=== PATIENT | male | born 1955 | race African-American/Black ===

== ENCOUNTER 2018-08-29 12:41 | Inpatient (IN) | payer MEDICARE, BC ==
[~2018-08-29] VITALS: Ht 180.3 cm; Wt 77.1 kg
[2018-08-29 12:41] VITALS: BP 97/65
[~2018-08-29 12:41] MED LIST: AMBIEN5 MG ORAL; ASPIRIN EC81 MG ORAL; BIDIL TABLET1 EACH; CARVEDILOL3.125 MG ORAL; CARVEDILOL6.25 MG ORAL; COUMADIN2.5 MG ORAL; COUMADIN5 MG ORAL; CYANOCOBAL1000 MCG/2 IM; FLOMAX0.4 MG ORAL; FOLIC ACID1 MG ORAL; FUROSEMIDE40 MG ORAL; GABAPENTIN300 MG ORAL; KLOR-CON20 MEQ ORAL; LEXAPRO10 MG ORAL; LISINOPRIL20 MG ORAL; METFORMIN HCL1000 M1 ORAL; NAPROXEN25 G1 MC; NEURONTIN600 MG ORAL; NORCO 10/3251 EA ORAL; PAREGORIC2 MG/5 ML PO; PLAVIX75 MG ORAL; RANITIDINE50 MG/2 ML IV; SPIRONOLACTONE100 MG ORAL; SUPER B COMPLE150 MG PO; ZOFRAN4 M1 ORAL
[2018-08-29] MEDS ORDERED: Sodium Chloride 500ML 500 ML IV ONE ×2 (12:55→15:15)
[2018-08-29 13:44] LABS: APPEARANCE,URINE CLEAR; BASOPHILS % (AUTO) 2.1 % (0.0-2.0); BILIRUBIN, URINE NEGATIVE (NEGATIVE); COLOR,URINE PALE YELLOW; EOSINOPHILS % (AUTO) 0.8 % (0.0-3.0); GLUCOSE, URINE (UA) NEGATIVE (NEGATIVE); HEMATOCRIT 36.6 % (42.0-52.0); HEMOGLOBIN 12.8 G/DL (14.2-18.0); KETONES,URINE NEGATIVE (NEGATIVE); LEUKOCYTE ESTERASE ,URINE NEGATIVE (NEGATIVE); LYMPHOCYTES % (AUTO) 26.9 % (20.0-45.0); MEAN CORPUSCULAR VOLUME 91 FL (80-99); MONOCYTES % (AUTO) 8.2 % (1.0-10.0); NITRITE,URINE NEGATIVE (NEGATIVE); PH,URINE 5 (4.5-8.0); PLATELET COUNT 137 K/UL (150-450); PROTEIN,URINE NEGATIVE (NEGATIVE); RED BLOOD COUNT 4.02 M/UL (4.70-6.10); RED CELL DISTRIBUTION WIDTH 11.7 % (11.6-14.8); UROBILINOGEN,URINE NORMAL MG/DL (0.0-1.0)
[2018-08-29 13:52] LABS: ANION GAP 11 mmol/L (5-15); BLOOD UREA NITROGEN 61 mg/dL (7-18); CALCIUM 8.7 MG/DL (8.5-10.1); CARBON DIOXIDE 21 MMOL/L (21-32); CHLORIDE 103 MMOL/L (98-107); CREATININE 2.2 MG/DL (0.55-1.30); POTASSIUM 4.8 MMOL/L (3.5-5.1); SODIUM 135 MMOL/L (136-145)
[2018-08-29 13:58] LABS: INR 1.2 (0.9-1.1)
[2018-08-29 14:05] LABS: ALANINE AMINOTRANSFERASE 75 U/L (12-78); ALBUMIN 3.4 G/DL (3.4-5.0); ALBUMIN/GLOBULIN RATIO 0.9 (1.0-2.7); ALKALINE PHOSPHATASE 99 U/L (46-116); ASPARTATE AMINO TRANSFERASE 58 U/L (15-37); BILIRUBIN,TOTAL 0.5 MG/DL (0.2-1.0); CKMB 0.9 NG/ML (0.0-3.6); CREATINE KINASE 46 U/L (26-308)
--- NOTE | 2018-08-29 14:13 | Diagnostic Imaging Report ---
Indication: Shortness of breath Technique: One view of the chest Comparison: 03/22/2015 Findings: Linear band of scarring is seen in the left lung base. The lungs and pleural spaces are otherwise clear. There is a left chest biventricular AICD. The heart size is upper limits normal. There is evidence of prior CABG Impression: No acute process. Postsurgical changes as described
--- NOTE | 2018-08-29 14:18 | Emergency Room Report ---
History of Present Illness General Chief Complaint: Chest Pain Source: Patient Present Illness HPI Patient is a 63-year-old male brought in by EMS after increased chest discomfort. Patient reports having increased the associated chest pressure the patient was sent in from [facility] the patient was noted to have prior history of cardiac disease. The patient had prior pacemaker placement as well as CABG approximately 8 years ago the patient was noted to have prior history of CHF. Patient reports having increased generalized weakness.The patient denies any defibrillator shocking.The patient was given aspirin by EMS Allergies: Coded Allergies: NO KNOWN ALLERGIES (Verified Allergy, Unknown, 08/29/18) Patient History Past Medical History: see triage record Past Surgical History: CABG, PTCA Reviewed Nursing Documentation: PMH: Agreed; PSxH: Agreed Nursing Documentation-PMH Hx Cardiac Problems: Yes Hx Hypertension: Yes Hx Pacemaker: Yes - V-PACING Hx Asthma: No - ALCOHOL DEPENDANCY Hx Diabetes: Yes Hx Cancer: No Hx Gastrointestinal Problems: Yes Hx Neurological Problems: No Hx Cerebrovascular Accident: No Hx Weakness: Yes - STARTING TODAY BI-LATERAL LOWER EXT WEAKNESS Review of Systems All Other Systems: negative except mentioned in HPI Physical Exam Vital Signs Date Time Temp Pulse Resp B/P (MAP) Pulse Ox O2 Delivery O2 Flow Rate FiO2 08/29/18 12:37 97.9 64 16 109/52 96 Room Air Sp02 EP Interpretation: reviewed, normal General Appearance: normal inspection, alert, GCS 15, non-toxic, Chronically Ill Head: atraumatic ENT: normal ENT inspection, hearing grossly normal, normal voice Neck: normal inspection, full range of motion, supple, no bony tend Respiratory: normal inspection, lungs clear, normal breath sounds, no respiratory distress, no retraction, no wheezing Cardiovascular #1: regular rate, rhythm, no edema Gastrointestinal: non tender, tenderness - lower abdomen, other - prior ostomy Genitourinary: no CVA tenderness Musculoskeletal: normal inspection, back normal, normal range of motion Neurologic: normal inspection, alert, oriented x3, responsive, immigration case worker III-XII nml as tested, speech normal Psychiatric: normal inspection, judgement/insight normal, mood/affect normal Skin: normal inspection, normal color, no rash Medical Decision Making Diagnostic Impression: Primary Impression: Episode of generalized weakness Additional Impressions: Cardiomyopathy DM (diabetes mellitus) possible short gut syndrome Acute renal failure ER Course Patient presented for chest pain and generalized weakness. The differential diagnosis included was not limited to pneumonia, myocardial infarction, arrhythmia among others. The EKG interpreted by me showed paced rhythm with a rate of [address] or T wave changes. Chest x-ray one view read by radiology showed postsurgical changes without evident infiltrate or pneumothorax. The laboratory testing showed no evidence of hyperkalemia. The patient was noted to be initially hypotensive. Patient was given IV fluids Dr. Greenberg was contacted for inpatient management due to complexity of medical condition and covering physician for Dr. Richard. Labs Test 08/29/18 13:00 White Blood Count 6.0 K/UL (4.8-10.8) Red Blood Count 4.02 M/UL (4.70-6.10) Hemoglobin 12.8 G/DL (14.2-18.0) Hematocrit 36.6 % (42.0-52.0) Mean Corpuscular Volume 91 FL (80-99) Mean Corpuscular Hemoglobin 32.0 PG (27.0-31.0) Mean Corpuscular Hemoglobin Concent 35.1 G/DL (32.0-36.0) Red Cell Distribution Width 11.7 % (11.6-14.8) Platelet Count 137 K/UL (150-450) Mean Platelet Volume 10.3 FL (6.5-10.1) Neutrophils (%) (Auto) 62.0 % (45.0-75.0) Lymphocytes (%) (Auto) 26.9 % (20.0-45.0) Monocytes (%) (Auto) 8.2 % (1.0-10.0) Eosinophils (%) (Auto) 0.8 % (0.0-3.0) Basophils (%) (Auto) 2.1 % (0.0-2.0) Prothrombin Time 12.8 SEC (9.30-11.50) Prothromb Time International Ratio 1.2 (0.9-1.1) Activated Partial Thromboplast Time 36 SEC (23-33) Urine Color Pale yellow Urine Appearance Clear Urine pH 5 (4.5-8.0) Urine Specific [place] 1.015 (1.005-1.035) Urine Protein Negative (NEGATIVE) Urine Glucose (UA) Negative (NEGATIVE) Urine Ketones Negative (NEGATIVE) Urine Blood Negative (NEGATIVE) Urine Nitrite Negative (NEGATIVE) Urine Bilirubin Negative (NEGATIVE) Urine Urobilinogen Normal MG/DL (0.0-1.0) Urine Leukocyte Esterase Negative (NEGATIVE) Sodium Level 135 MMOL/L (136-145) Potassium Level 4.8 MMOL/L (3.5-5.1) Chloride Level 103 MMOL/L (98-107) Carbon Dioxide Level 21 MMOL/L (21-32) Anion Gap 11 mmol/L (5-15) Blood Urea Nitrogen 61 mg/dL (7-18) Creatinine 2.2 MG/DL (0.55-1.30) Estimat Glomerular Filtration Rate 36.7 mL/min (>60) Glucose Level 119 MG/DL (74-106) Calcium Level 8.7 MG/DL (8.5-10.1) Total Bilirubin 0.5 MG/DL (0.2-1.0) Aspartate Amino Transf (AST/SGOT) 58 U/L (15-37) Alanine Aminotransferase (ALT/SGPT) 75 U/L (12-78) Alkaline Phosphatase 99 U/L (46-116) Total Creatine Kinase 46 U/L (26-308) Creatine Kinase MB 0.9 NG/ML (0.0-3.6) Creatine Kinase MB Relative Index 1.9 Troponin I 0.004 ng/mL (0.000-0.056) Pro-B-Type Natriuretic Peptide 919 pg/mL (0-125) Total Protein 7.2 G/DL (6.4-8.2) Albumin 3.4 G/DL (3.4-5.0) Globulin 3.8 g/dL Albumin/Globulin Ratio 0.9 (1.0-2.7) Lipase 49 U/L (73-393) EKG Diagnostic Results Rate: normal Rhythm: other - paced rhythm ST Segments: no acute changes Last Vital Signs Date Time Temp Pulse Resp B/P (MAP) Pulse Ox O2 Delivery O2 Flow Rate FiO2 08/29/18 12:37 97.9 64 16 109/52 96 Room Air Status: unchanged Disposition: ADMITTED INPATIENT Condition: Serious Aaron Weinstein MD Aug 29, 2018 14:18
[2018-08-29 14:38] VITALS: BP 105/71
[2018-08-29] MEDS ORDERED: HYDROcodone/Acetamin 10/325 tab ORAL ONE (15:15)
[2018-08-29] MEDS ORDERED: FINASTERIDE5 MG ORAL (16:25)
[2018-08-29] MEDS ORDERED: SPIRONOLACTONE100 MG ORAL (16:25)
[2018-08-29] MEDS ORDERED: RANITIDINE HCL150 M2 PO (16:25)
[2018-08-29] MEDS ORDERED: FUROSEMIDE40 MG/5 ML ORAL (16:25)
[2018-08-29] MEDS ORDERED: JANUVIA100 MG ORAL (16:25)
[2018-08-29] MEDS ORDERED: TAMSULOSIN HCL0.4 MG ORAL (16:25)
[2018-08-29] MEDS ORDERED: ISOSORBIDE DINI20 M2 PO (16:25)
[2018-08-29] MEDS ORDERED: ALDACTONE25 MG ORAL (16:25)
[2018-08-29] MEDS ORDERED: ELIQUIS5 MG PO (16:25)
[2018-08-29] MEDS ORDERED: JANUMET 50-5001 EACH ORAL (16:25)
[2018-08-29] MEDS ORDERED: ATORVASTATIN CA40 MG ORAL (16:25)
[2018-08-29] MEDS ORDERED: ENTRESTO 24 MG1 EACH PO (16:25)
[2018-08-29 16:40] VITALS: BP 113/75
[2018-08-29] MEDS ORDERED: Zolpidem 5mg tab ORAL PRN (17:30)
[2018-08-29] MEDS ORDERED: Mylanta II UD 30ml ORAL PRN (17:30)
[2018-08-29] MEDS ORDERED: Miralax 17gm pkt ORAL PRN (17:30)
[2018-08-29] MEDS ORDERED: LORazepam Inj 2mg/ml 1ml IV PRN (17:30)
[2018-08-29 18:40] VITALS: BP 105/58
[2018-08-29 20:00] VITALS: BP 114/77
[2018-08-29] MEDS: Carvedilol 12.5mg tab ORAL SCH (20:56)
[2018-08-29] MEDS: Heparin 5000 units/ml inj SUBQ SCH (20:57)
[2018-08-29] MEDS: NovoLOG Insulin Flexpen SUBQ SCH (20:57)
[2018-08-29] MEDS ORDERED: PPD Tuberculin Skin Test 5TU IDERMAL ONE (21:00)
[2018-08-29] MEDS: Morphine Sulfate 2mg/ml Inj IVP PRN (22:06)
[2018-08-30] VITALS: BP 117/75
[2018-08-30 04:00] VITALS: BP 102/61
[2018-08-30] MEDS: NovoLOG Insulin Flexpen SUBQ SCH ×4 (06:30→21:00)
[2018-08-30 07:49] LABS: EOSINOPHILS % (AUTO) 1.3 % (0.0-3.0); HEMATOCRIT 35.3 % (42.0-52.0); HEMOGLOBIN 12.7 G/DL (14.2-18.0); LYMPHOCYTES % (AUTO) 29.1 % (20.0-45.0); MEAN CORPUSCULAR VOLUME 91 FL (80-99); NEUTROPHILS % (AUTO) 54.6 % (45.0-75.0); PLATELET COUNT 109 K/UL (150-450); RED BLOOD COUNT 3.89 M/UL (4.70-6.10); RED CELL DISTRIBUTION WIDTH 11.7 % (11.6-14.8); WHITE BLOOD COUNT 6.9 K/UL (4.8-10.8)
--- NOTE | 2018-08-30 07:52 | Consultation ---
History of Present Illness General Date patient seen: Aug 30, 2018 Chief Complaint: Chest Pain Reason for Consultation: PNA Present Illness HPI Mr. Kong is a 63 yo male with PMHx of CHF and CABG who presented to the ED with CP. The patient was sent from his half-way on 08/29/18. The patient has no Hx of SOB, F/C, cough, hemoptysis. The CXR from the ER shows no acute process only postsurgical changes as described. He reports no F/C, N/V/D, Mild cough but nothing bad. His CP is resolved. ID was consulted for PNA PMHx/PXHx DM CAD CABG PTCA Depression HTN EtOH abuse AICD short-bowel syndrome Colectomy SocHx Active smoker Past EtOH use FamHx ALLERGIES: DONOVAN inhibitors. Allergies: Coded Allergies: NO KNOWN ALLERGIES (Verified Allergy, Unknown, 08/29/18) Medication History Scheduled Apixaban (Eliquis), 5 MG PO DAILY, (Reported) Aspirin Ec* (Aspirin Ec*), 81 MG ORAL DAILY, (Reported) Atorvastatin Calcium* (Atorvastatin Calcium*), 80 MG ORAL BEDTIME, (Reported) Carvedilol* (Carvedilol*), 12.5 MG ORAL BID, (Reported) Clopidogrel Bisulfate* (Plavix*), 75 MG ORAL DAILY, (Reported) Cyanocobalamin (Vitamin B-12) (Cyanocobalamin Injection), 1,000 MCG IM EVERY OTHER WED, (Reported) Escitalopram Oxalate* (Lexapro*), 10 MG ORAL DAILY, (Reported) Finasteride (Finasteride), 5 MG ORAL DAILY, (Reported) Folic Acid* (Folic Acid*), 1 MG ORAL DAILY, (Reported) Furosemide (Furosemide), 20 MG ORAL DAILY, (Reported) Gabapentin* (Neurontin*), 300 MG ORAL THREE TIMES A DAY Isosorbide Dinitrate (Isosorbide Dinitrate), 20 MG PO TID, (Reported) Ranitidine HCl (Ranitidine HCl), 150 MG PO BID, (Reported) Ranitidine Hcl* (Ranitidine Hcl*), 150 MG IV Q12HR, (Reported) Sacubitril/Valsartan (Entresto 24 mg-26 mg Tablet), 1 EACH PO DAILY, (Reported) Sitagliptin (Januvia), 100 MG ORAL DAILY, (Reported) Sitagliptin Phos/Metformin Hcl (Janumet 50-500 Mg Tablet), 1 TAB ORAL DAILY, ( Reported) Spironolactone (Aldactone), 25 MG ORAL DAILY, (Reported) Spironolactone* (Spironolactone*), 12.5 MG ORAL DAILY, (Reported) Tamsulosin HCl (Flomax), 0.4 MG ORAL BID Tamsulosin Hcl (Tamsulosin Hcl*), 0.4 MG ORAL BEDTIME, (Reported) Vitamin B Complex & Vit C No.4 (Super B Complex), 400 MG PO DAILY, (Reported) Warfarin Sod* (Coumadin*), 5 MG ORAL DAILY ON TO SAT, (Reported) Warfarin Sod* (Coumadin*), 2.5 MG ORAL DAILY SAT AND SUN , (Reported) Scheduled PRN Hydrocodone/Acetaminophen (Hydrocodon-Acetaminophn 10-325), 1 TAB ORAL BID PRN for For Pain, (Reported) Ondansetron (Zofran), 4 MG ORAL Q6H PRN for Nausea & Vomiting, (Reported) Zolpidem Tartrate* (Ambien*), 5 MG ORAL HSPRN PRN for Insomnia Patient History Healthcare decision maker N Resuscitation status Do Not Resuscitate Advanced Directive on File Review of Systems All Other Systems: negative except mentioned in HPI Physical Exam Physical Exam Narrative Gen: NAD, well appearing, alert HEENT: NCAT, MMM, EOMI, PERRL, No Oral lesion, no scleral icterus NECK: full range of motion, supple, no meningismus, No LAD, No JVD LUNGS: CTAB, Mild wheezing CARDS: RRR, S1, S2, No M/R/G ABD: Soft, NT, ND, No R/G, + BS, No HSM, No Masses : Deferred Ext: C/C/E, Pulses 2+ B/L (DP, Rad) NEURO: A/O x 4, Strength and Sensation Grossly intact PSYCH: mood/affect normal SKIN: warm/dry, No rashes Last 24 Hour Vital Signs Date Time Temp Pulse Resp B/P (MAP) Pulse Ox O2 Delivery O2 Flow Rate FiO2 08/30/18 04:00 98.0 63 18 102/61 (75) 98 08/30/18 04:00 63 08/30/18 00:00 61 08/30/18 00:00 97.9 62 18 117/75 (89) 99 08/29/18 20:56 63 114/77 08/29/18 20:00 97.7 63 18 114/77 (89) 98 08/29/18 20:00 72 08/29/18 19:52 Room Air 08/29/18 19:50 97.8 65 16 106/62 100 Room Air 65 08/29/18 18:40 61 16 105/58 100 Room Air 08/29/18 16:40 61 16 113/75 100 08/29/18 16:01 97.9 08/29/18 14:38 63 17 105/71 100 Room Air 08/29/18 12:41 64 16 Room Air 08/29/18 12:41 97.9 68 16 97/65 96 Room Air 08/29/18 12:37 97.9 64 16 109/52 96 Room Air Intake and Output 08/29/18 08/30/18 19:00 07:00 Intake Total 1000 ml 350 ml Balance 1000 ml 350 ml Intake Oral 350 ml IV Total 1000 ml # Voids 1 4 # Bowel Movements 1 Laboratory Tests Test 08/29/18 13:00 08/30/18 06:30 White Blood Count 6.0 K/UL (4.8-10.8) 6.9 K/UL (4.8-10.8) Red Blood Count 4.02 M/UL (4.70-6.10) L 3.89 M/UL (4.70-6.10) L Hemoglobin 12.8 G/DL (14.2-18.0) L 12.7 G/DL (14.2-18.0) L Hematocrit 36.6 % (42.0-52.0) L 35.3 % (42.0-52.0) L Mean Corpuscular Volume 91 FL (80-99) 91 FL (80-99) Mean Corpuscular Hemoglobin 32.0 PG (27.0-31.0) H 32.7 PG (27.0-31.0) H Mean Corpuscular Hemoglobin Concent 35.1 G/DL (32.0-36.0) 36.1 G/DL (32.0-36.0) H Red Cell Distribution Width 11.7 % (11.6-14.8) 11.7 % (11.6-14.8) Platelet Count 137 K/UL (150-450) L 109 K/UL (150-450) L Mean Platelet Volume 10.3 FL (6.5-10.1) H 8.6 FL (6.5-10.1) Neutrophils (%) (Auto) 62.0 % (45.0-75.0) 54.6 % (45.0-75.0) Lymphocytes (%) (Auto) 26.9 % (20.0-45.0) 29.1 % (20.0-45.0) Monocytes (%) (Auto) 8.2 % (1.0-10.0) 14.0 % (1.0-10.0) H Eosinophils (%) (Auto) 0.8 % (0.0-3.0) 1.3 % (0.0-3.0) Basophils (%) (Auto) 2.1 % (0.0-2.0) H 1.0 % (0.0-2.0) Prothrombin Time 12.8 SEC (9.30-11.50) H Prothromb Time International Ratio 1.2 (0.9-1.1) H Activated Partial Thromboplast Time 36 SEC (23-33) H Urine Color Pale yellow Urine Appearance Clear Urine pH 5 (4.5-8.0) Urine Specific [place] 1.015 (1.005-1.035) Urine Protein Negative (NEGATIVE) Urine Glucose (UA) Negative (NEGATIVE) Urine Ketones Negative (NEGATIVE) Urine Blood Negative (NEGATIVE) Urine Nitrite Negative (NEGATIVE) Urine Bilirubin Negative (NEGATIVE) Urine Urobilinogen Normal MG/DL (0.0-1.0) Urine Leukocyte Esterase Negative (NEGATIVE) Sodium Level 135 MMOL/L (136-145) L Pending Potassium Level 4.8 MMOL/L (3.5-5.1) Pending Chloride Level 103 MMOL/L (98-107) Pending Carbon Dioxide Level 21 MMOL/L (21-32) Pending Anion Gap 11 mmol/L (5-15) Blood Urea Nitrogen 61 mg/dL (7-18) H Pending Creatinine 2.2 MG/DL (0.55-1.30) H Pending Estimat Glomerular Filtration Rate 36.7 mL/min (>60) Pending Glucose Level 119 MG/DL (74-106) H Pending Calcium Level 8.7 MG/DL (8.5-10.1) Pending Total Bilirubin 0.5 MG/DL (0.2-1.0) Pending Aspartate Amino Transf (AST/SGOT) 58 U/L (15-37) H Pending Alanine Aminotransferase (ALT/SGPT) 75 U/L (12-78) Pending Alkaline Phosphatase 99 U/L (46-116) Pending Lactate Dehydrogenase 292 U/L (81-234) H Total Creatine Kinase 46 U/L (26-308) Creatine Kinase MB 0.9 NG/ML (0.0-3.6) Creatine Kinase MB Relative Index 1.9 Troponin I 0.004 ng/mL (0.000-0.056) Pro-B-Type Natriuretic Peptide 919 pg/mL (0-125) H Total Protein 7.2 G/DL (6.4-8.2) Pending Albumin 3.4 G/DL (3.4-5.0) Pending Globulin 3.8 g/dL Pending Albumin/Globulin Ratio 0.9 (1.0-2.7) L Lipase 49 U/L (73-393) L Lymphocytes Pending Triglycerides Level Pending Cholesterol Level Pending LDL Cholesterol Pending HDL Cholesterol Pending Cholesterol/HDL Ratio Pending Percent CD3 Cells Pending Absolute CD3 Count Pending Percent CD4 Cells Pending Absolute CD4 Count Pending T-Lymphocyte CD4/CD8 Ratio Pending Percent CD8 Cells Pending Absolute CD8 Count Pending Rapid Plasma Reagin Pending Coccidioides Antibody (Comp Fix) Pending Cryptococcus Antigen Pending Toxoplasma IgG Antibody Pending Toxoplasma IgM Antibody Pending Height (Feet): 5 Height (Inches): 11.00 Weight (Pounds): 170 Medications Current Medications Medications (Trade) Dose Ordered Sig/Shabana Route PRN Reason Start Time Stop Time Status Last Admin Dose Admin Acetaminophen (Tylenol) 650 mg Q4H PRN ORAL fever 08/29/18 17:22 09/28/18 17:21 Al Hydroxide/Mg Hydroxide (Mylanta II) 30 ml Q6H PRN ORAL dyspepsia 08/29/18 17:30 09/28/18 17:29 Carvedilol (Coreg) 12.5 mg Q12HR ORAL 08/29/18 21:00 09/28/18 20:59 08/29/18 20:56 Clopidogrel Bisulfate (Plavix) 75 mg DAILY ORAL 08/30/18 09:00 09/29/18 08:59 Dextrose (Dextrose 50%) 25 ml Q30M PRN IV Hypoglycemia 08/29/18 17:30 09/28/18 17:29 Dextrose (Dextrose 50%) 50 ml Q30M PRN IV Hypoglycemia 08/29/18 17:30 09/28/18 17:29 Escitalopram Oxalate (Lexapro) 10 mg DAILY ORAL 08/30/18 09:00 09/29/18 08:59 Heparin Sodium (Porcine) (Heparin 5000 units/ml) 5,000 units EVERY 12 HOURS SUBQ 08/29/18 21:00 09/28/18 20:59 Insulin Aspart (NovoLOG) BEFORE MEALS AND HS SUBQ 08/29/18 21:00 09/28/18 20:59 Lorazepam (Ativan 2mg/ml 1ml) 0.5 mg Q4H PRN IV For Anxiety 08/29/18 17:30 09/05/18 17:29 Morphine Sulfate (Morphine Sulfate) 1 mg Q4H PRN IVP For Pain 08/29/18 17:30 09/05/18 17:29 08/29/18 22:06 Ondansetron HCl (Zofran) 4 mg Q6H PRN IVP Nausea & Vomiting 08/29/18 17:30 09/28/18 17:29 Polyethylene Glycol (Miralax) 17 gm HSPRN PRN ORAL Constipation 08/29/18 17:30 09/28/18 17:29 Sitagliptin Phosphate (Januvia) 100 mg DAILY ORAL 08/30/18 09:00 09/29/18 08:59 Tamsulosin HCl (Flomax) 0.4 mg BID ORAL 08/30/18 09:00 09/29/18 08:59 Zolpidem Tartrate (Ambien) 5 mg HSPRN PRN ORAL Insomnia 08/29/18 17:30 09/05/18 17:29 Assessment/Plan Assessment/Plan 63 yo male with PMHx of CHF and CABG who presented to the ED with CP. DM CAD - SP CABG and AICD Depression HTN Short-bowel syndrome Hx of Colectomy Chest pain No sign of active infection at this time No SOB, No F/C, CXR with no acute process Plan - Continue to monitor off abx - CP work up per primary or cardiology Thank you for this consult. We will continue to follow the patient during this hospitalization. Dilan Ramirez MD Aug 30, 2018 07:52
[2018-08-30 08:00] VITALS: BP 128/67
--- NOTE | 2018-08-30 08:11 | History and Physical ---
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 Chest pain intermittent, non radiating. Denies fevers, chills cough, hemoptysis. [place] [facility] [place]/chronic. Aspirin was given by paramedics Upon evaluation vital signs were stable. Laboratory workup revealed no leukocytosis ,mild anemia Chemistry showed renal failure with BUN 61 creatinine 2.2. LDH 292. AST 58. Lipase 49. Troponin negative. Pro BNP 919. Urinalysis no evidence of UTI. EKG showed paced rhythm. Chest x-ray revealed no acute cardiopulmonary pathology. Patient admitted to telemetry floor for workup of chest pain and further management. Allergies: Coded Allergies: NO KNOWN ALLERGIES (Verified Allergy, Unknown, 08/29/18) Medication History Scheduled Apixaban (Eliquis), 5 MG PO DAILY, (Reported) Aspirin Ec* (Aspirin Ec*), 81 MG ORAL DAILY, (Reported) Atorvastatin Calcium* (Atorvastatin Calcium*), 80 MG ORAL BEDTIME, (Reported) Carvedilol* (Carvedilol*), 12.5 MG ORAL BID, (Reported) Clopidogrel Bisulfate* (Plavix*), 75 MG ORAL DAILY, (Reported) Cyanocobalamin (Vitamin B-12) (Cyanocobalamin Injection), 1,000 MCG IM EVERY OTHER WED, (Reported) Escitalopram Oxalate* (Lexapro*), 10 MG ORAL DAILY, (Reported) Finasteride (Finasteride), 5 MG ORAL DAILY, (Reported) Folic Acid* (Folic Acid*), 1 MG ORAL DAILY, (Reported) Furosemide (Furosemide), 20 MG ORAL DAILY, (Reported) Gabapentin* (Neurontin*), 300 MG ORAL THREE TIMES A DAY Isosorbide Dinitrate (Isosorbide Dinitrate), 20 MG PO TID, (Reported) Ranitidine HCl (Ranitidine HCl), 150 MG PO BID, (Reported) Ranitidine Hcl* (Ranitidine Hcl*), 150 MG IV Q12HR, (Reported) Sacubitril/Valsartan (Entresto 24 mg-26 mg Tablet), 1 EACH PO DAILY, (Reported) Sitagliptin (Januvia), 100 MG ORAL DAILY, (Reported) Sitagliptin Phos/Metformin Hcl (Janumet 50-500 Mg Tablet), 1 TAB ORAL DAILY, ( Reported) Spironolactone (Aldactone), 25 MG ORAL DAILY, (Reported) Spironolactone* (Spironolactone*), 12.5 MG ORAL DAILY, (Reported) Tamsulosin HCl (Flomax), 0.4 MG ORAL BID Tamsulosin Hcl (Tamsulosin Hcl*), 0.4 MG ORAL BEDTIME, (Reported) Vitamin B Complex & Vit C No.4 (Super B Complex), 400 MG PO DAILY, (Reported) Warfarin Sod* (Coumadin*), 5 MG ORAL DAILY ON TO FRI, (Reported) Warfarin Sod* (Coumadin*), 2.5 MG ORAL DAILY SAT AND SUN , (Reported) Scheduled PRN Hydrocodone/Acetaminophen (Hydrocodon-Acetaminophn 10-325), 1 TAB ORAL BID PRN for For Pain, (Reported) Ondansetron (Zofran), 4 MG ORAL Q6H PRN for Nausea & Vomiting, (Reported) Zolpidem Tartrate* (Ambien*), 5 MG ORAL HSPRN PRN for Insomnia Patient History Healthcare decision maker N Resuscitation status Do Not Resuscitate Advanced Directive on File Past Medical/Surgical History Past Medical/Surgical History: (1) Cardiomyopathy (2) DM (diabetes mellitus) (3) possible short gut syndrome (4) HTN (hypertension) Review of Systems Constitutional: Reports: weakness Eye: Reports: no symptoms ENT: Reports: no symptoms Respiratory: Reports: see HPI Cardiovascular: Reports: see HPI Gastrointestinal: Reports: abdominal pain, diarrhea Genitourinary: Reports: no symptoms Musculoskeletal: Reports: back pain - chronic Psychiatric: Reports: depressed feelings Neurological: Reports: paresthesia Hematologic/Lymphatic: Reports: no symptoms Physical Exam General Appearance: WD/WN, no apparent distress, alert Lines, tubes and drains: peripheral HEENT: normocephalic, atraumatic, anicteric, mucous membranes moist, PERRL Neck: non-tender, normal alignment, supple Respiratory/Chest: no respiratory distress, other - isolated rhonchi, left chest AICD Cardiovascular/Chest: normal peripheral pulses, normal rate - paced rhythm on tele , no JVD Abdomen: normal bowel sounds, non tender, soft Extremities: normal range of motion, no calf tenderness Skin Exam: warm/dry Neurologic: alert, oriented x 3, responsive, other - inpatient coder gross focal Musculoskeletal: normal muscle bulk Last 24 Hour Vital Signs Date Time Temp Pulse Resp B/P (MAP) Pulse Ox O2 Delivery O2 Flow Rate FiO2 08/30/18 04:00 98.0 63 18 102/61 (75) 98 08/30/18 04:00 63 08/30/18 00:00 61 08/30/18 00:00 97.9 62 18 117/75 (89) 99 08/29/18 20:56 63 114/77 08/29/18 20:00 97.7 63 18 114/77 (89) 98 08/29/18 20:00 72 08/29/18 19:52 Room Air 08/29/18 19:50 97.8 65 16 106/62 100 Room Air 65 08/29/18 18:40 61 16 105/58 100 Room Air 08/29/18 16:40 61 16 113/75 100 08/29/18 16:01 97.9 08/29/18 14:38 63 17 105/71 100 Room Air 08/29/18 12:41 64 16 Room Air 08/29/18 12:41 97.9 68 16 97/65 96 Room Air 08/29/18 12:37 97.9 64 16 109/52 96 Room Air Intake and Output 08/29/18 08/30/18 19:00 07:00 Intake Total 1000 ml 350 ml Balance 1000 ml 350 ml Intake Oral 350 ml IV Total 1000 ml # Voids 1 4 # Bowel Movements 1 Laboratory Tests Test 08/29/18 13:00 08/30/18 06:30 White Blood Count 6.0 K/UL (4.8-10.8) 6.9 K/UL (4.8-10.8) Red Blood Count 4.02 M/UL (4.70-6.10) L 3.89 M/UL (4.70-6.10) L Hemoglobin 12.8 G/DL (14.2-18.0) L 12.7 G/DL (14.2-18.0) L Hematocrit 36.6 % (42.0-52.0) L 35.3 % (42.0-52.0) L Mean Corpuscular Volume 91 FL (80-99) 91 FL (80-99) Mean Corpuscular Hemoglobin 32.0 PG (27.0-31.0) H 32.7 PG (27.0-31.0) H Mean Corpuscular Hemoglobin Concent 35.1 G/DL (32.0-36.0) 36.1 G/DL (32.0-36.0) H Red Cell Distribution Width 11.7 % (11.6-14.8) 11.7 % (11.6-14.8) Platelet Count 137 K/UL (150-450) L 109 K/UL (150-450) L Mean Platelet Volume 10.3 FL (6.5-10.1) H 8.6 FL (6.5-10.1) Neutrophils (%) (Auto) 62.0 % (45.0-75.0) 54.6 % (45.0-75.0) Lymphocytes (%) (Auto) 26.9 % (20.0-45.0) 29.1 % (20.0-45.0) Monocytes (%) (Auto) 8.2 % (1.0-10.0) 14.0 % (1.0-10.0) H Eosinophils (%) (Auto) 0.8 % (0.0-3.0) 1.3 % (0.0-3.0) Basophils (%) (Auto) 2.1 % (0.0-2.0) H 1.0 % (0.0-2.0) Prothrombin Time 12.8 SEC (9.30-11.50) H Prothromb Time International Ratio 1.2 (0.9-1.1) H Activated Partial Thromboplast Time 36 SEC (23-33) H Urine Color Pale yellow Urine Appearance Clear Urine pH 5 (4.5-8.0) Urine Specific [place] 1.015 (1.005-1.035) Urine Protein Negative (NEGATIVE) Urine Glucose (UA) Negative (NEGATIVE) Urine Ketones Negative (NEGATIVE) Urine Blood Negative (NEGATIVE) Urine Nitrite Negative (NEGATIVE) Urine Bilirubin Negative (NEGATIVE) Urine Urobilinogen Normal MG/DL (0.0-1.0) Urine Leukocyte Esterase Negative (NEGATIVE) Sodium Level 135 MMOL/L (136-145) L Pending Potassium Level 4.8 MMOL/L (3.5-5.1) Pending Chloride Level 103 MMOL/L (98-107) Pending Carbon Dioxide Level 21 MMOL/L (21-32) Pending Anion Gap 11 mmol/L (5-15) Blood Urea Nitrogen 61 mg/dL (7-18) H Pending Creatinine 2.2 MG/DL (0.55-1.30) H Pending Estimat Glomerular Filtration Rate 36.7 mL/min (>60) Pending Glucose Level 119 MG/DL (74-106) H Pending Calcium Level 8.7 MG/DL (8.5-10.1) Pending Total Bilirubin 0.5 MG/DL (0.2-1.0) Pending Aspartate Amino Transf (AST/SGOT) 58 U/L (15-37) H Pending Alanine Aminotransferase (ALT/SGPT) 75 U/L (12-78) Pending Alkaline Phosphatase 99 U/L (46-116) Pending Lactate Dehydrogenase 292 U/L (81-234) H Total Creatine Kinase 46 U/L (26-308) Creatine Kinase MB 0.9 NG/ML (0.0-3.6) Creatine Kinase MB Relative Index 1.9 Troponin I 0.004 ng/mL (0.000-0.056) Pro-B-Type Natriuretic Peptide 919 pg/mL (0-125) H Total Protein 7.2 G/DL (6.4-8.2) Pending Albumin 3.4 G/DL (3.4-5.0) Pending Globulin 3.8 g/dL Pending Albumin/Globulin Ratio 0.9 (1.0-2.7) L Lipase 49 U/L (73-393) L Lymphocytes Pending Triglycerides Level Pending Cholesterol Level Pending LDL Cholesterol Pending HDL Cholesterol Pending Cholesterol/HDL Ratio Pending Percent CD3 Cells Pending Absolute CD3 Count Pending Percent CD4 Cells Pending Absolute CD4 Count Pending T-Lymphocyte CD4/CD8 Ratio Pending Percent CD8 Cells Pending Absolute CD8 Count Pending Rapid Plasma Reagin Pending Coccidioides Antibody (Comp Fix) Pending Cryptococcus Antigen Pending Toxoplasma IgG Antibody Pending Toxoplasma IgM Antibody Pending Height (Feet): 5 Height (Inches): 11.00 Weight (Pounds): 170 Medications Current Medications Medications (Trade) Dose Ordered Sig/Shabana Route PRN Reason Start Time Stop Time Status Last Admin Dose Admin Acetaminophen (Tylenol) 650 mg Q4H PRN ORAL fever 08/29/18 17:22 09/28/18 17:21 Al Hydroxide/Mg Hydroxide (Mylanta II) 30 ml Q6H PRN ORAL dyspepsia 08/29/18 17:30 09/28/18 17:29 Carvedilol (Coreg) 12.5 mg Q12HR ORAL 08/29/18 21:00 09/28/18 20:59 08/29/18 20:56 Clopidogrel Bisulfate (Plavix) 75 mg DAILY ORAL 08/30/18 09:00 09/29/18 08:59 Dextrose (Dextrose 50%) 25 ml Q30M PRN IV Hypoglycemia 08/29/18 17:30 09/28/18 17:29 Dextrose (Dextrose 50%) 50 ml Q30M PRN IV Hypoglycemia 08/29/18 17:30 09/28/18 17:29 Escitalopram Oxalate (Lexapro) 10 mg DAILY ORAL 08/30/18 09:00 09/29/18 08:59 Heparin Sodium (Porcine) (Heparin 5000 units/ml) 5,000 units EVERY 12 HOURS SUBQ 08/29/18 21:00 09/28/18 20:59 Insulin Aspart (NovoLOG) BEFORE MEALS AND HS SUBQ 08/29/18 21:00 09/28/18 20:59 Lorazepam (Ativan 2mg/ml 1ml) 0.5 mg Q4H PRN IV For Anxiety 08/29/18 17:30 09/05/18 17:29 Morphine Sulfate (Morphine Sulfate) 1 mg Q4H PRN IVP For Pain 08/29/18 17:30 09/05/18 17:29 08/29/18 22:06 Ondansetron HCl (Zofran) 4 mg Q6H PRN IVP Nausea & Vomiting 08/29/18 17:30 09/28/18 17:29 Polyethylene Glycol (Miralax) 17 gm HSPRN PRN ORAL Constipation 08/29/18 17:30 09/28/18 17:29 Sitagliptin Phosphate (Januvia) 100 mg DAILY ORAL 08/30/18 09:00 09/29/18 08:59 Tamsulosin HCl (Flomax) 0.4 mg BID ORAL 08/30/18 09:00 09/29/18 08:59 Zolpidem Tartrate (Ambien) 5 mg HSPRN PRN ORAL Insomnia 08/29/18 17:30 09/05/18 17:29 Assessment/Plan Assessment/Plan ASSESSMENT Atypical chest pain Acute renal failure CAD with hx of CABG biventricular AICD cardiomyopathy with EF 25-30% mild pulmonary HTN HTN 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 Minimally elevated AST Hx of ETOH Active smoker Chronic back pain Prior history of cocaine abuse ( 30 yrs ago) PLAN OF CARE tele serial troponin EKG with pacing Echo Cardio eval BB and a/PLT therapy BP management with BB ,optimize as needed ; a/failure regimen per further cardio revs, will likely benefit from DONOVAN - DVT prophylaxis pain management Nitro prn O2 prn HHN prn ID follows currently off abx, CXR no acute process, UA negative, no evidence of infection serology for cocci, crypto, toxo, RPR pending T cell subsets pending rapid HIV test BS management with SSI s/p 1L IVF; monitor renal parameters, electrolytes ,replace electrolytes prn, creat trending down, avoid nephrotoxic nephro eval Januvia may be contributing, and may need to decrease dose, but creat trending down GI prophylaxis bowel regimen supportive care addiction counselor on smoking cessation and to continue abstinence from ETOH and illegal street drugs case discussed and evaluated by supervising physician Kenia Ag NP Aug 30, 2018 08:11
[2018-08-30 08:29] LABS: ALANINE AMINOTRANSFERASE 61 U/L (12-78); ALBUMIN 3.3 G/DL (3.4-5.0); ALBUMIN/GLOBULIN RATIO 0.9 (1.0-2.7); ALKALINE PHOSPHATASE 91 U/L (46-116); ANION GAP 11 mmol/L (5-15); ASPARTATE AMINO TRANSFERASE 42 U/L (15-37); BILIRUBIN,TOTAL 0.7 MG/DL (0.2-1.0); BLOOD UREA NITROGEN 47 mg/dL (7-18); CALCIUM 8.4 MG/DL (8.5-10.1); CARBON DIOXIDE 21 MMOL/L (21-32); CHLORIDE 105 MMOL/L (98-107); CHOLESTEROL 76 MG/DL (< 200); CREATININE 1.7 MG/DL (0.55-1.30); HDL CHOLESTEROL 71 MG/DL (40-60); POTASSIUM 3.8 MMOL/L (3.5-5.1); SODIUM 137 MMOL/L (136-145); TRIGLYCERIDES 54 MG/DL (30-150)
[2018-08-30] MEDS: Heparin 5000 units/ml inj SUBQ SCH ×2 (09:00→21:00)
[2018-08-30] MEDS: Tamsulosin 0.4mg cap ORAL SCH ×2 (09:02→18:14)
[2018-08-30] MEDS: Carvedilol 12.5mg tab ORAL SCH ×2 (09:02→21:28)
[2018-08-30] MEDS: Morphine Sulfate 2mg/ml Inj IVP PRN ×2 (09:03→18:40)
--- NOTE | 2018-08-30 11:46 | Consultation ---
Consult Note Consult Note Patient is a 63-year-old male brought in by EMS after increased chest discomfort. Patient reports having increased the associated chest pressure the patient was sent in from [facility] the patient was noted to have prior history of cardiac disease. The patient had prior pacemaker placement as well as CABG approximately 8 years ago the patient was noted to have prior history of CHF. Patient reports having increased generalized weakness.The patient denies any defibrillator shocking.The patient was given aspirin by EMS Allergies: DONOVAN INHIBITORS (Unverified Allergy, Unknown, 12/30/14) Past Surgical History: CABG, PTCA Hx Cardiac Problems: Yes Hx Hypertension: Yes Hx Pacemaker: Yes - V-PACING - ALCOHOL DEPENDANCY Hx Diabetes: Yes Hx Gastrointestinal Problems: Yes Hx Weakness: Yes - STARTING TODAY BI-LATERAL LOWER EXT WEAKNESS interviewed examined data reviewed Assessment/Plan Acute renal failure CAD with hx of CABG biventricular AICD cardiomyopathy Chest pain r/o ACS HTN 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
[2018-08-30 12:00] VITALS: BP 120/76
--- NOTE | 2018-08-30 13:41 | Cardiology Progress Note ---
Assessment/Plan Assessment/Plan atypical cp only 10 min different htan priro angina repat trop await echo if trop neg will consider dc home with out pt fu for stress testign in near future [id number] Objective Last 24 Hour Vital Signs Date Time Temp Pulse Resp B/P (MAP) Pulse Ox O2 Delivery O2 Flow Rate FiO2 08/30/18 12:00 97.8 66 20 120/76 (91) 08/30/18 09:33 97.5 08/30/18 09:02 99 128/67 08/30/18 08:00 Room Air 08/30/18 08:00 97.5 99 20 128/67 (87) 98 08/30/18 04:00 98.0 63 18 102/61 (75) 98 08/30/18 04:00 63 08/30/18 00:00 61 08/30/18 00:00 97.9 62 18 117/75 (89) 99 08/29/18 20:56 63 114/77 08/29/18 20:00 97.7 63 18 114/77 (89) 98 08/29/18 20:00 72 08/29/18 19:52 Room Air 08/29/18 19:50 97.8 65 16 106/62 100 Room Air 65 08/29/18 18:40 61 16 105/58 100 Room Air 08/29/18 16:40 61 16 113/75 100 08/29/18 16:01 97.9 08/29/18 14:38 63 17 105/71 100 Room Air Intake and Output 08/29/18 08/30/18 19:00 07:00 Intake Total 1000 ml 350 ml Balance 1000 ml 350 ml Intake Oral 350 ml IV Total 1000 ml # Voids 1 4 # Bowel Movements 1 Laboratory Tests Test 08/30/18 06:30 White Blood Count 6.9 K/UL (4.8-10.8) Red Blood Count 3.89 M/UL (4.70-6.10) L Hemoglobin 12.7 G/DL (14.2-18.0) L Hematocrit 35.3 % (42.0-52.0) L Mean Corpuscular Volume 91 FL (80-99) Mean Corpuscular Hemoglobin 32.7 PG (27.0-31.0) H Mean Corpuscular Hemoglobin Concent 36.1 G/DL (32.0-36.0) H Red Cell Distribution Width 11.7 % (11.6-14.8) Platelet Count 109 K/UL (150-450) L Mean Platelet Volume 8.6 FL (6.5-10.1) Neutrophils (%) (Auto) 54.6 % (45.0-75.0) Lymphocytes (%) (Auto) 29.1 % (20.0-45.0) Monocytes (%) (Auto) 14.0 % (1.0-10.0) H Eosinophils (%) (Auto) 1.3 % (0.0-3.0) Basophils (%) (Auto) 1.0 % (0.0-2.0) Lymphocytes Pending Sodium Level 137 MMOL/L (136-145) Potassium Level 3.8 MMOL/L (3.5-5.1) Chloride Level 105 MMOL/L (98-107) Carbon Dioxide Level 21 MMOL/L (21-32) Anion Gap 11 mmol/L (5-15) Blood Urea Nitrogen 47 mg/dL (7-18) H Creatinine 1.7 MG/DL (0.55-1.30) H Estimat Glomerular Filtration Rate 49.4 mL/min (>60) Glucose Level 56 MG/DL (74-106) L Hemoglobin A1c 7.4 % (4.3-6.0) H Calcium Level 8.4 MG/DL (8.5-10.1) L Total Bilirubin 0.7 MG/DL (0.2-1.0) Aspartate Amino Transf (AST/SGOT) 42 U/L (15-37) H Alanine Aminotransferase (ALT/SGPT) 61 U/L (12-78) Alkaline Phosphatase 91 U/L (46-116) Total Protein 6.9 G/DL (6.4-8.2) Albumin 3.3 G/DL (3.4-5.0) L Globulin 3.6 g/dL Albumin/Globulin Ratio 0.9 (1.0-2.7) L Triglycerides Level 54 MG/DL (30-150) Cholesterol Level 76 MG/DL (< 200) LDL Cholesterol 9 mg/dL (<100) HDL Cholesterol 71 MG/DL (40-60) H Cholesterol/HDL Ratio 1.1 (3.3-4.4) L Thyroid Stimulating Hormone (TSH) 0.925 uiU/mL (0.358-3.740) Percent CD3 Cells Pending Absolute CD3 Count Pending Percent CD4 Cells Pending Absolute CD4 Count Pending T-Lymphocyte CD4/CD8 Ratio Pending Percent CD8 Cells Pending Absolute CD8 Count Pending Rapid Plasma Reagin Pending Coccidioides Antibody (Comp Fix) Pending Cryptococcus Antigen Pending HIV (1&2) Antibody Rapid Negative (NEGATIVE) Toxoplasma IgG Antibody Pending Toxoplasma IgM Antibody Pending Pool Lancaster MD Aug 30, 2018 13:41
[2018-08-30] MEDS: Docusate 100mg cap ORAL SCH ×2 (14:01→18:00)
[2018-08-30 16:00] VITALS: BP 112/70
--- NOTE | 2018-08-30 16:15 | Consultation ---
DATE OF CONSULTATION: 08/30/2018 NOTE: INCOMPLETE DICTATION CARDIAC CONSULTATION CONSULTING PHYSICIAN: Pool Lancaster M.D. REFERRING PHYSICIAN: Cinthia Greenberg M.D. REASON FOR REFERRAL: Chest pain. HISTORY OF PRESENT ILLNESS: This is a 63-year-old gentleman who has history of coronary artery disease, who presented to the hospital because of an episode of pain that lasted approximately 5 or 10 minutes, sharp sensation. He has never had this pain before though he has had history of coronary artery disease, 5 stents, bypass surgeries, and heart attack. He has never had this particular pain. In fact, since his bypass surgery, he has not had any of anginal symptoms that he had before the bypass surgery. He has occasional sharp pains that are fleeting. This one lasted approximately 5-10 minutes. Along with this, he had GI issues and finally presented to the emergency room at [facility] for evaluation. He does not have any discomfort right now. There is no PND at the present time. No orthopnea at the present time, although he has had those previously. Approximately 4 weeks ago, he thinks there was occasional dyspnea on exertion, but nothing to prohibit his activity. There is no PND. Recently, there is occasional dizziness or lightheadedness on standing with occasional palpitations, but not recently. PAST MEDICAL HISTORY: Positive for history of coronary artery disease with 2-vessel coronary artery bypass grafting approximately 8 years ago, history of heart attack, he does have history of congestive heart failure, history of intracardiac defibrillator placement, previously history of systemic hypertension, diabetes mellitus, a ventral hernia, depression, short-bowel syndrome, post cholecystectomy, acute renal failure, chronic diarrhea recurrent, and hyperkalemia previously. ALLERGIES: He is not allergic to any medications. SOCIAL HISTORY: He occasionally smokes. Does not drink alcoholic beverages. Denies any drug use. REVIEW OF SYSTEMS: GASTROINTESTINAL: He has multiple chronic recurrent GI issues, some nausea, occasional vomiting, multiple bouts of diarrhea. No bloody or black stools. GENITOURINARY: Denies. PULMONARY: Revealed cough. CONSTITUTIONAL: He has a lot of sweats. He has had some weight loss, but he attributes this to the fact that he is not able to eat adequately because of GI issues. NEUROLOGICAL: He has some numbness and tingling sensation in his fingers and toes. No blurred vision or double vision. Occasional dizziness. PHYSICAL EXAMINATION: GENERAL: Shows to be thin elderly gentleman, in no respiratory distress. HEENT: Unremarkable. NECK: Supple. No jugular venous distention. No abdominojugular reflux noted. LUNGS: Clear to auscultation and percussion. CARDIAC: S1 is normal. S2 is normal. Regular rate and rhythm. No heaves, thrills, or gallops noted. ABDOMEN: Soft, nontender. Positive bowel sounds. EXTREMITIES: There is no edema, clubbing, or cyanosis. NEUROLOGICAL: He is awake, alert, responsive, in no apparent distress. LABORATORY AND DIAGNOSTIC DATA: White count of 6.9, hemoglobin 12.7, and platelet count of 109,000. His sodium is 137, potassium is 3.8, chloride 107, bicarbonate 21, BUN 47, creatinine 1.7, glucose of 56. His creatinine was 2.2 yesterday. A1c of 7.4. Calcium is 8.4. Liver function tests are normal. His troponin yesterday 0.04, today is pending. Albumin of 3.3. B12 level was last checked in 2014. TSH is 0.925. Total cholesterol is 76 with LDL of 9 and HDL of 71. Urinalysis is fairly unremarkable. His x-rays from yesterday, there is no acute process. Telemetry is sinus with V-pacing and the patient's electrocardiogram shows sinus with V-pacing as well. ASSESSMENT AND PLAN: 1. Atypical chest pain. 2. History of coronary artery disease. Pool Lancaster M.D. DR: Magalie JOB#: [id number] CC:
[2018-08-30 20:00] VITALS: BP 114/72
[2018-08-31] VITALS: BP 110/76
[2018-08-31 04:00] VITALS: BP 106/96
[2018-08-31] MEDS: NovoLOG Insulin Flexpen SUBQ SCH (06:30)
[2018-08-31] MEDS: Morphine Sulfate 2mg/ml Inj IVP PRN (06:40)
[2018-08-31 07:16] LABS: BASOPHILS % (AUTO) 1.5 % (0.0-2.0); EOSINOPHILS % (AUTO) 1.4 % (0.0-3.0); HEMATOCRIT 35.5 % (42.0-52.0); HEMOGLOBIN 12.4 G/DL (14.2-18.0); LYMPHOCYTES % (AUTO) 27.5 % (20.0-45.0); MEAN CORPUSCULAR VOLUME 91 FL (80-99); MONOCYTES % (AUTO) 14.4 % (1.0-10.0); NEUTROPHILS % (AUTO) 55.2 % (45.0-75.0); PLATELET COUNT 115 K/UL (150-450); RED BLOOD COUNT 3.89 M/UL (4.70-6.10); RED CELL DISTRIBUTION WIDTH 11.9 % (11.6-14.8); WHITE BLOOD COUNT 5.4 K/UL (4.8-10.8)
[2018-08-31 07:19] LABS: ANION GAP 10 mmol/L (5-15); BLOOD UREA NITROGEN 29 mg/dL (7-18); CALCIUM 8.7 MG/DL (8.5-10.1); CARBON DIOXIDE 20 MMOL/L (21-32); CHLORIDE 106 MMOL/L (98-107); CREATININE 1.4 MG/DL (0.55-1.30); POTASSIUM 4.3 MMOL/L (3.5-5.1); SODIUM 136 MMOL/L (136-145)
--- NOTE | 2018-08-31 07:28 | Pulmonology Progress Note ---
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 Minimally elevated AST Hx of ETOH Active smoker Chronic back pain Prior history of cocaine abuse ( 30 yrs ago) PLAN OF CARE tele serial troponin negatuive EKG no acute ischemic changes, r/o for acute IL Echo with EF 25-30% Cardio eval BB and a/PLT therapy BP management with BB ,optimize as needed ; a/failure regimen - at home resume BB, Entresto- per outpatient cardio evak if BP allows, diuretic /maintenance dose ( does of Lasix changed to qod) , fup with outpt cardio DVT prophylaxis lipid panel stable pain management Nitro prn O2 prn HHN prn ID follows currently off abx, CXR no acute process, UA negative, no evidence of infection serology for cocci, crypto, toxo, RPR pending T cell subsets pending rapid HIV test negative blood sugar management with SSI s/p 500 ml of IVF; monitor renal parameters, electrolytes , replace electrolytes prn, creat trending down avoid nephrotoxic nephro eval appreciated creat trending down -1.4 today ALEKSANDR likely precipitated by nephrotoxics: diuretics and probably mild dehydration not in CHF exacerbation, continue low dose Aldactone and Lasix changed to qod on discharge -clsoely monitor renal paramerts as outapteitn per PMD/cardio outpatient fup with cardio in one week urine tox + marijuana GI prophylaxis bowel regimen supportive care loan counselor on smoking cessation /declined Nicotine patch / and to continue abstinence from ETOH and illegal street drugs dc today outpt stress test as recommended by cardio DNR/DNI status case discussed and evaluated by supervising physician Subjective Allergies: Coded Allergies: NO KNOWN ALLERGIES (Verified Allergy, Unknown, 08/29/18) Subjective denies chest pain Objective Last 24 Hour Vital Signs Date Time Temp Pulse Resp B/P (MAP) Pulse Ox O2 Delivery O2 Flow Rate FiO2 08/31/18 04:00 61 08/31/18 04:00 97.7 74 19 106/96 (99) 98 08/31/18 00:00 97.0 63 18 110/76 (87) 97 08/31/18 00:00 62 08/30/18 21:28 75 114/74 08/30/18 21:00 Room Air 08/30/18 20:00 69 08/30/18 20:00 98.1 75 18 114/72 (86) 99 08/30/18 19:10 97.3 08/30/18 16:00 97.3 68 20 112/70 (84) 99 08/30/18 15:40 66 08/30/18 12:00 97.8 66 20 120/76 (91) 08/30/18 11:52 65 08/30/18 09:02 99 128/67 08/30/18 08:00 Room Air 08/30/18 08:00 97.5 99 20 128/67 (87) 98 08/30/18 07:53 66 Intake and Output 08/30/18 08/31/18 19:00 07:00 Intake Total 275 ml Balance 275 ml Intake Oral 275 ml # Voids 3 2 Objective General Appearance: WD/WN, no apparent distress, alert Lines, tubes and drains: peripheral HEENT: normocephalic, atraumatic, anicteric, mucous membranes moist, PERRL Neck: non-tender, normal alignment, supple Respiratory/Chest: no respiratory distress, CTAB, left chest AICD Cardiovascular/Chest: normal peripheral pulses, normal rate - V paced rhythm on tele , no JVD Abdomen: normal bowel sounds, non tender, soft Extremities: normal range of motion, no calf tenderness Skin Exam: warm/dry Neurologic: alert, oriented x 3, responsive, no gross focal Musculoskeletal: normal muscle bulk Physical Exam Narrative Gen: NAD, well appearing, alert Laboratory Tests 08/30/18 16:00: Troponin I 0.017 08/30/18 18:35: Urine Opiates Screen PositiveH, Urine Barbiturates Screen Negative, Phencyclidine (PCP) Screen Negative, Urine Amphetamines Screen Negative, Urine Benzodiazepines Screen Negative, Urine Cocaine Screen Negative, Urine Marijuana (THC) Screen PositiveH 08/31/18 06:50: White Blood Count 5.4, Red Blood Count 3.89L, Hemoglobin 12.4L, Hematocrit 35.5L , Mean Corpuscular Volume 91, Mean Corpuscular Hemoglobin 31.8H, Mean Corpuscular Hemoglobin Concent 34.8, Red Cell Distribution Width 11.9, Platelet Count 115L, Mean Platelet Volume 9.3, Neutrophils (%) (Auto) 55.2, Lymphocytes ( %) (Auto) 27.5, Monocytes (%) (Auto) 14.4H, Eosinophils (%) (Auto) 1.4, Basophils (%) (Auto) 1.5, Sodium Level 136, Potassium Level 4.3, Chloride Level 106, Carbon Dioxide Level 20L, Anion Gap 10, Blood Urea Nitrogen 29H, Creatinine 1.4H, Estimat Glomerular Filtration Rate > 60, Glucose Level 63L, Calcium Level 8.7 Current Medications Medications (Trade) Dose Ordered Sig/Shabana Route PRN Reason Start Time Stop Time Status Last Admin Dose Admin Acetaminophen (Tylenol) 650 mg Q4H PRN ORAL fever 08/29/18 17:22 09/28/18 17:21 Carvedilol (Coreg) 12.5 mg Q12HR ORAL 08/29/18 21:00 09/28/18 20:59 08/30/18 21:28 Clopidogrel Bisulfate (Plavix) 75 mg DAILY ORAL 08/30/18 09:00 09/29/18 08:59 08/30/18 09:02 Dextrose (Dextrose 50%) 25 ml Q30M PRN IV Hypoglycemia 08/29/18 17:30 09/28/18 17:29 Dextrose (Dextrose 50%) 50 ml Q30M PRN IV Hypoglycemia 08/29/18 17:30 09/28/18 17:29 Docusate Sodium (Colace) 100 mg THREE TIMES A DAY ORAL 08/30/18 13:00 09/29/18 12:59 08/30/18 14:01 Escitalopram Oxalate (Lexapro) 10 mg DAILY ORAL 08/30/18 09:00 09/29/18 08:59 08/30/18 09:02 Heparin Sodium (Porcine) (Heparin 5000 units/ml) 5,000 units EVERY 12 HOURS SUBQ 08/29/18 21:00 09/28/18 20:59 Insulin Aspart (NovoLOG) BEFORE MEALS AND HS SUBQ 08/29/18 21:00 09/28/18 20:59 Lorazepam (Ativan 2mg/ml 1ml) 0.5 mg Q4H PRN IV For Anxiety 08/29/18 17:30 09/05/18 17:29 Morphine Sulfate (Morphine Sulfate) 1 mg Q4H PRN IVP For Pain 08/29/18 17:30 09/05/18 17:29 08/31/18 06:40 Ondansetron HCl (Zofran) 4 mg Q6H PRN IVP Nausea & Vomiting 08/29/18 17:30 09/28/18 17:29 Pantoprazole (Protonix) 40 mg EVERY 12 HOURS ORAL 08/30/18 21:00 09/29/18 20:59 08/30/18 21:28 Polyethylene Glycol (Miralax) 17 gm HSPRN PRN ORAL Constipation 08/29/18 17:30 09/28/18 17:29 Sitagliptin Phosphate (Januvia) 100 mg DAILY ORAL 08/30/18 09:00 09/29/18 08:59 08/30/18 09:02 Tamsulosin HCl (Flomax) 0.4 mg BID ORAL 08/30/18 09:00 09/29/18 08:59 08/30/18 18:14 Zolpidem Tartrate (Ambien) 5 mg HSPRN PRN ORAL Insomnia 08/29/18 17:30 09/05/18 17:29 Kenia Ag DAIRY SUPPLIES SALES REPRESENTATIVE Aug 31, 2018 07:28
[2018-08-31] MEDS ORDERED: Nitroglycerin Subl 0.4mg tab SL PRN (07:30)
[2018-08-31 08:00] VITALS: BP 103/68
[2018-08-31] MEDS: Docusate 100mg cap ORAL SCH (08:10)
[2018-08-31] MEDS: Tamsulosin 0.4mg cap ORAL SCH (08:10)
[2018-08-31 08:15] VITALS: BP 103/68
[2018-08-31] MEDS: Heparin 5000 units/ml inj SUBQ SCH (08:15)
[2018-08-31] MEDS: Carvedilol 12.5mg tab ORAL SCH (08:15)
[2018-08-31] MEDS ORDERED: FUROSEMIDE20 M1 ORAL (09:26)
--- NOTE | 2018-08-31 11:09 | Cardiology Report ---
APPROVED REPORT EXAM: Two-dimensional and M-mode echocardiogram with Doppler and color Doppler. INDICATION Chest Pain M-Mode DIMENSIONS IVSd1.2 (0.7-1.1cm)Left Atrium (MM)4.0 (1.6-4.0cm) LVDd5.5 (3.5-5.6cm)Aortic Root3.2 (2.0-3.7cm) PWd1.0 (0.7-1.1cm)Aortic Cusp Exc.1.8 (1.5-2.0cm) LVDs5.1 (2.5-4.0cm) PWs1.4 cm Technically difficult study due to poor acoustic windows. Study quality precludes accurate assessment of regional wall motion. apical tabor are not adequately visualized Normal left ventricular chamber size. Akinetic thineed scarred anterior septum and mid to distal inferior wall and dyskinetic distal post wall (thinning of tabor indicates these abn are likely chronic in nature) Left ventricular ejection fraction estimated to be 25-30 %. Mild left ventricular hypertrophy. No evidence of pericardial effusion. All other cardiac chamber sizes are within normal limits. Focal aortic valve sclerosis with adequate cusp excursion. Thickened mitral valve leaflets with normal excursion. Mild mitral annulus and aortic root calcification. Pulmonic valve not well visualized. Normal tricuspid valve structure. IVC not obtainable. Probable pacemaker wire present in the right side chambers. A color flow and spectral Doppler study was performed and revealed: Mild aortic insufficiency. Mild mitral regurgitation. Mitral diastolic velocities suggest mild left ventricular diastolic dysfunction (Grade I). Mild tricuspid regurgitation. Tricuspid systolic velocities suggests peak right ventricular systolic pressure of 40 mmHg, consistent with mild pulmonary hypertension. Trace pulmonic regurgitation present.
--- NOTE | 2018-08-31 11:14 | Cardiology Progress Note ---
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 in on bb but not on acei his bp is borderline Subjective Cardiovascular: Denies: chest pain, lightheadedness, palpitations Respiratory: Denies: shortness of breath Gastrointestinal/Abdominal: Denies: abdominal pain Genitourinary: Denies: burning Subjective 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 , 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 Objective Last 24 Hour Vital Signs Date Time Temp Pulse Resp B/P (MAP) Pulse Ox O2 Delivery O2 Flow Rate FiO2 08/31/18 09:00 Room Air 08/31/18 08:15 64 103/68 08/31/18 08:00 65 08/31/18 08:00 97.7 64 20 103/68 (80) 99 08/31/18 04:00 61 08/31/18 04:00 97.7 74 19 106/96 (99) 98 08/31/18 00:00 97.0 63 18 110/76 (87) 97 08/31/18 00:00 62 08/30/18 21:28 75 114/74 08/30/18 21:00 Room Air 08/30/18 20:00 69 08/30/18 20:00 98.1 75 18 114/72 (86) 99 08/30/18 19:10 97.3 08/30/18 16:00 97.3 68 20 112/70 (84) 99 08/30/18 15:40 66 08/30/18 12:00 97.8 66 20 120/76 (91) 08/30/18 11:52 65 General Appearance: no apparent distress, alert Neck: supple Cardiovascular: normal rate, regular rhythm Respiratory/Chest: lungs clear, normal breath sounds Abdomen: non tender, soft Extremities: no swelling Intake and Output 08/30/18 08/31/18 19:00 07:00 Intake Total 275 ml Balance 275 ml Intake Oral 275 ml # Voids 3 2 Laboratory Tests Test 08/30/18 16:00 08/30/18 18:35 08/31/18 06:50 Troponin I 0.017 ng/mL (0.000-0.056) Urine Opiates Screen Positive (NEGATIVE) H Urine Barbiturates Screen Negative (NEGATIVE) Phencyclidine (PCP) Screen Negative (NEGATIVE) Urine Amphetamines Screen Negative (NEGATIVE) Urine Benzodiazepines Screen Negative (NEGATIVE) Urine Cocaine Screen Negative (NEGATIVE) Urine Marijuana (THC) Screen Positive (NEGATIVE) H White Blood Count 5.4 K/UL (4.8-10.8) Red Blood Count 3.89 M/UL (4.70-6.10) L Hemoglobin 12.4 G/DL (14.2-18.0) L Hematocrit 35.5 % (42.0-52.0) L Mean Corpuscular Volume 91 FL (80-99) Mean Corpuscular Hemoglobin 31.8 PG (27.0-31.0) H Mean Corpuscular Hemoglobin Concent 34.8 G/DL (32.0-36.0) Red Cell Distribution Width 11.9 % (11.6-14.8) Platelet Count 115 K/UL (150-450) L Mean Platelet Volume 9.3 FL (6.5-10.1) Neutrophils (%) (Auto) 55.2 % (45.0-75.0) Lymphocytes (%) (Auto) 27.5 % (20.0-45.0) Monocytes (%) (Auto) 14.4 % (1.0-10.0) H Eosinophils (%) (Auto) 1.4 % (0.0-3.0) Basophils (%) (Auto) 1.5 % (0.0-2.0) Sodium Level 136 MMOL/L (136-145) Potassium Level 4.3 MMOL/L (3.5-5.1) Chloride Level 106 MMOL/L (98-107) Carbon Dioxide Level 20 MMOL/L (21-32) L Anion Gap 10 mmol/L (5-15) Blood Urea Nitrogen 29 mg/dL (7-18) H Creatinine 1.4 MG/DL (0.55-1.30) H Estimat Glomerular Filtration Rate > 60 mL/min (>60) Glucose Level 63 MG/DL (74-106) L Calcium Level 8.7 MG/DL (8.5-10.1) Daneshrad,Pool S. MD Aug 31, 2018 11:14
--- NOTE | 2018-08-31 11:56 | Cardiology Report ---
APPROVED REPORT EKG Measurement Heart [id number] a v pacing
--- NOTE | 2018-09-01 09:16 | Discharge Summary ---
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 Chest pain reported as short-acting/5-10 minutes, intermittent, nonradiating. Patient denied fever ,chills, cough, hemoptysis. He admitted to shortness of breath and chronic back pain. Aspirin was given by paramedics. Upon evaluation vital signs were stable. Laboratory workup revealed no leukocytosis , renal failure with BUN 61 creatinine 2.2 Troponin negative , pro BNP 919. Urinalysis revealed no evidence of UTI EKG showed V pacing rhythm. Chest x-ray revealed no acute cardiopulmonary pathology. Patient admitted to telemetry floor for workup for chest pain and further management. CONSULTANTS: belt worker Dr. Lancaster ID specialist Dr. Foy licensed customs broker Dr. Richard [facility]: Patient admitted to telemetry floor. Serial troponin were negative. EKG revealed no acute ischemic changes . Patient was ruled out for acute [place]. Echocardiogram revealed left ventricular ejection fraction 25-30%. Akinetic thinned scarred anterior septum and mid to distal inferior wall and dyskinetic distal post wall . No evidence of pericardial effusion. Mild left ventricular hypertrophy. Per belt worker , thinning of the tabor was suggestive of old injury. Electrical Design Technologist closely followed. Patient was on beta diane and antiplatelet therapy. Blood pressure was managed with beta diane. Blood pressure remained borderline, DONOVAN was held. No evidence of decompensation. Lipid panel was stable. DVT prophylaxis provided. Pain management provided as needed. Nitroglycerin was on board as needed. Supplemental oxygen provided to keep pulse oximetry above 92%. Pulmonary toilet was on standby. No recurrence of chest pain . Patient was ambulated in the hallway. Electrical Design Technologist cleared patient for discharge with recommendations for outpatient stress test and follow up with outpatient belt worker. Per belt worker, chest pain was atypical, no recurrence. Chest x-ray revealed no acute process . ID specialist recommended to keep patient off antibiotics. Urinalysis was negative . Rapid HIV test was negative. Renal parameters and electrolytes were closely monitored. Electrolytes corrected as needed. Nephrotoxins were avoided. Environmental Services Project Manager closely followed. Creating from initial 2.2 down to 1.4. Acute kidney injury possibly precipitated by use of diuretic at home and probably mild dehydration. Patient was not in acute congestive heart failure and was off diuretic while at the hospital. Patient received 500 ml of IV fluids initially. At home recommended to continue low dose of Aldactone and Lasix changed to every other day with close follow-up with renal parameters. Outpatient follow up with belt worker within week . GI prophylaxis provided. Bowel regimen instituted. Supportive care provided. Patient was counseled on smoking cessation , declined Nicotine patch. Patient was counseled to continue abstinence from ETOH and illegal street drugs. Blood sugar was managed with sliding scale of insulin. Patient was stable for discharge. 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 DISCHARGE INSTRUCTIONS: Patient was discharged to assisted living. Outpatient stress test recommended, follow-up with belt worker as outpatient Kenia Ag NP Sep 01, 2018 09:16
== END 2018-08-31 11:00 | disposition home or self-care (01) | DRG 313 ==
LOC: EDBD 12:41 → EDBEDREQ 13:16 → EMR 13:23 → 2E 16:42 → EDBEDREQ 16:48
DX: R07.89 Other chest pain (principal); I13.0 Hypertensive heart and chronic kidney disease with heart failure and stage 1 through stage 4 chronic kidney disease, or unspecified chronic kidney disease; I50.22 Chronic systolic (congestive) heart failure; N17.9 Acute kidney failure, unspecified; I42.9 Cardiomyopathy, unspecified; K91.2 Postsurgical malabsorption, not elsewhere classified; I25.10 Atherosclerotic heart disease of native coronary artery without angina pectoris; Z95.1 Presence of aortocoronary bypass graft; I25.2 Old myocardial infarction; N18.9 Chronic kidney disease, unspecified; I27.20 Pulmonary hypertension, unspecified; F17.200 Nicotine dependence, unspecified, uncomplicated; F10.21 Alcohol dependence, in remission; G89.29 Other chronic pain; M54.9 Dorsalgia, unspecified; F14.21 Cocaine dependence, in remission; Z90.49 Acquired absence of other specified parts of digestive tract; E11.22 Type 2 diabetes mellitus with diabetic chronic kidney disease; Z79.01 Long term (current) use of anticoagulants; Z66 Do not resuscitate; Z88.8 Allergy status to other drugs, medicaments and biological substances; Z95.0 Presence of cardiac pacemaker
CPT/HCPCS: 36415; 71045; 80048; 80053; 80061; 80307; 81003; 82550; 82553; 82962; 83036; 83615; 83690; 83880; 84443; 84484; 85025; 85610; 85730; 86360; 86580; 86592; 86635; 86703; 86777; 86778; 86850; 86900; 86901; 87081; 87449; 93005; 93306; 96361; 96374; 99285; J1815